=== PATIENT | male | born 1995 | race Caucasian/White ===

== ENCOUNTER 2017-03-04 12:39 | Emergency (ER) | payer SELFPAY ==
--- NOTE | 2017-03-04 15:22 | ED NURSING NOTES ---
Clinical Report - Nurses [facility] [address] [place] [address] 03/04/2017 12:40 Patient: JANIE DARDEN TRIAGE Triage time 1245. Acuity: LEVEL 3. Chief Complaint: INJURY TO FACE and MOUTH. 12:45. ( last ate 1130 cucumbers, last liquids 1100 java juice). LORI COMA SCORE: [place] Coma Scale: 15- eyes open spontaneously (4); best verbal response- oriented x 4 (5); best motor response- obeys commands (6). --12:59 Sully Alejo R.N. 12:50 03/04/17. BP: 136/67. HR: 106. RR: 18. O2 saturation: 100%. Temp: 97.2 F (axillary). Pain level now: 11/04. --12:59 Sully Alejo R.N. Weight: 61.2 kg stated. Height/Length: 69.5 inches Per Patient. BMI: 19.6. --12:54 Sully Alejo R.N. Medications None. --12:56 Sully Alejo R.N. Adderall Oral, last dose yesterday (thinks he has ADD and wanted to see if that would help ). --12:57 Sully Alejo R.N. Allergies No Known Drug Allergy. --12:56 Sully Alejo R.N. History Arrived by private vehicle. Historian: patient. Accompanied by friend. No primary care physician. This occurred just prior to arrival. Mechanism of injury: he sustained a dog bite. PAST MEDICAL HX: Negative. Tetanus status: up-to-date. SURGERY HX: No history of previous surgery. SOCIAL HX: Never smoker. Occasional alcohol use. History of drug use: marijuana. --12:59 Sully Alejo R.N. PROBLEMS: no known problems. ADDITIONAL SURGERIES: no known surgeries. Interventions ID band on patient. To treatment room. --12:59 Sully Alejo R.N. PHYSICAL ASSESSMENT 12:50. Ambulatory to room. GENERAL / NEURO / PSYCH: Alert. Oriented X 4. Appears anxious. HEENT: Facial swelling present. Right cheek: (PW noted on cheek). Voice within normal limits. Upper lip: laceration (through and through) (right side upper lip lac into facial boarder). Lower lip: laceration (through and through) (large flap of lower lip lloose). No dental injury noted. RESPIRATORY: Respirations not labored. BACK: No neck or back tenderness. SKIN: Skin is warm and dry. --13:01 Sully Alejo R.N. NURSING PROGRESS NOTES 12:45. Patient gowned. Reassurance given. Patient identifiers checked. Call light placed in reach. Side rails up. Bed placed in lowest position. Patient ready for evaluation- chart flagged. --13:01 Sully Alejo R.N. 13:10 03/04/2017 Lidocaine Injection Injectable 1 % given. (bottle at bedside for use by ERN). --13:20 Sully Alejo R.N. 13:10 03/04/2017 Bupivacaine Injection Injectable 0.5 % given. Allergies verified and confirmed 5 rights. (left at bedside for ERNP USE). --13:23 Sully Alejo R.N. 13:05. ( Photos taken of lip injury.). --13:24 Sully Alejo R.N. 13:15. ( Animal control office in [place] phoned, ([phone]) message left on voice mail to notify them of event). --13:26 Sully Alejo R.N. 13:17. ( suture set up and suction in place for procedure, assisted by transport technician). --13:27 Sully Alejo R.N. WOUND REPAIR: Wound repair performed by [facility]. Assisted by [facility] tech. The wound is located on the lip. The wound is irregular and flap-like. Preparation: suture tray set-up with 1% lidocaine and 0.50% Marcaine. Wound cleansed per [facility] and irrigated per [facility] with 500 mL sterile saline using a syringe. Procedure: wound repaired (extensive work on lower lip - 8 suture packets used). Post-procedure: he was stable, bleeding controlled and neuro-vascular status intact distal to wound. Total time of assist / procedure: 60 minutes. --14:30 Sully Alejo R.N. Airline Station Agent provided (wound repair by [facility]). Wound cleansed with sterile water (assistance during wound repair and triple antibiotic cream applied after sutures were done.). --14:51 Francie Sharp 14:30 03/04/2017 Ancef (CeFAZolin Sodium) IM 1 gm given. Given in the right ventral gluteus. --15:28 Sully Alejo R.N. 15:00 Pt reports no itching or rash after IM meds. Pt dc'd with friend ambulatory. --15:28 Sully Alejo R.N. DISPOSITION / DISCHARGE 15:05. Condition at departure: improved and stable. No learning barriers present. Discharge instructions provided and reviewed with tube depatcher and the patient. Reviewed medication(s) (zofran, vicodin, motrin, augmentin). Reviewed wound care instructions. Patient and tube depatcher verbalized understanding. Written instructions provided in Swiss. The patient was discharged home and accompanied by tube depatcher. He left the Emergency Department ambulatory and via private vehicle. Math And Physics Instructor driving. --15:27 Sully Alejo R.N. 15:05 03/04/17. BP: 128/64. HR: 84. RR: 16. O2 saturation: 100%. Temp: deferred. Pain level now: 0/10. --15:27 Sully Alejo R.N. Locked/Released at 03/04/2017 15:29 by Sully Alejo R.N.
--- NOTE | 2017-03-04 15:22 | ED NURSING NOTES ---
Clinical Report - Nurses [facility] [address] [place] [address] 03/04/2017 12:40 Patient: JANIE DARDEN TRIAGE Triage time 1245. Acuity: LEVEL 3. Chief Complaint: INJURY TO FACE and MOUTH. 12:45. ( last ate 1130 cucumbers, last liquids 1100 java juice). LORI COMA SCORE: [place] Coma Scale: 15- eyes open spontaneously (4); best verbal response- oriented x 4 (5); best motor response- obeys commands (6). --12:59 Sully Alejo R.N. 12:50 03/04/17. BP: 136/67. HR: 106. RR: 18. O2 saturation: 100%. Temp: 97.2 F (axillary). Pain level now: 11/04. --12:59 Sully Alejo R.N. Weight: 61.2 kg stated. Height/Length: 69.5 inches Per Patient. BMI: 19.6. --12:54 Sully Alejo R.N. Medications None. --12:56 Sully Alejo R.N. Adderall Oral, last dose yesterday (thinks he has ADD and wanted to see if that would help ). --12:57 Sully Alejo R.N. Allergies No Known Drug Allergy. --12:56 Sully Alejo R.N. History Arrived by private vehicle. Historian: patient. Accompanied by friend. No primary care physician. This occurred just prior to arrival. Mechanism of injury: he sustained a dog bite. PAST MEDICAL HX: Negative. Tetanus status: up-to-date. SURGERY HX: No history of previous surgery. SOCIAL HX: Never smoker. Occasional alcohol use. History of drug use: marijuana. --12:59 Sully Alejo R.N. PROBLEMS: no known problems. ADDITIONAL SURGERIES: no known surgeries. Interventions ID band on patient. To treatment room. --12:59 Sully Alejo R.N. PHYSICAL ASSESSMENT 12:50. Ambulatory to room. GENERAL / NEURO / PSYCH: Alert. Oriented X 4. Appears anxious. HEENT: Facial swelling present. Right cheek: (PW noted on cheek). Voice within normal limits. Upper lip: laceration (through and through) (right side upper lip lac into facial boarder). Lower lip: laceration (through and through) (large flap of lower lip lloose). No dental injury noted. RESPIRATORY: Respirations not labored. BACK: No neck or back tenderness. SKIN: Skin is warm and dry. --13:01 Sully Alejo R.N. NURSING PROGRESS NOTES 12:45. Patient gowned. Reassurance given. Patient identifiers checked. Call light placed in reach. Side rails up. Bed placed in lowest position. Patient ready for evaluation- chart flagged. --13:01 Sully Alejo R.N. 13:10 03/04/2017 Lidocaine Injection Injectable 1 % given. (bottle at bedside for use by ERN). --13:20 Sully Alejo R.N. 13:10 03/04/2017 Bupivacaine Injection Injectable 0.5 % given. Allergies verified and confirmed 5 rights. (left at bedside for ERNP USE). --13:23 Sully Alejo R.N. 13:05. ( Photos taken of lip injury.). --13:24 Sully Alejo R.N. 13:15. ( Animal control office in [place] phoned, ([phone]) message left on voice mail to notify them of event). --13:26 Sully Alejo R.N. 13:17. ( suture set up and suction in place for procedure, assisted by mechanical maintenance technician). --13:27 Sully Alejo R.N. WOUND REPAIR: Wound repair performed by [facility]. Assisted by [facility] tech. The wound is located on the lip. The wound is irregular and flap-like. Preparation: suture tray set-up with 1% lidocaine and 0.50% Marcaine. Wound cleansed per [facility] and irrigated per SHEAR SETTER with 500 mL sterile saline using a syringe. Procedure: wound repaired (extensive work on lower lip - 8 suture packets used). Post-procedure: he was stable, bleeding controlled and neuro-vascular status intact distal to wound. Total time of assist / procedure: 60 minutes. --14:30 Sully Alejo R.N. Telephone Order Dispatcher provided (wound repair by SHEAR [facility]TER). Wound cleansed with sterile water (assistance during wound repair and triple antibiotic cream applied after sutures were done.). --14:51 Francie Sharp 14:30 03/04/2017 Ancef (CeFAZolin Sodium) IM 1 gm given. Given in the right ventral gluteus. --15:28 Sully Alejo R.N. 15:00 Pt reports no itching or rash after IM meds. Pt dc'd with friend ambulatory. --15:28 Sully Alejo R.N. DISPOSITION / DISCHARGE 15:05. Condition at departure: improved and stable. No learning barriers present. Discharge instructions provided and reviewed with visualizer and the patient. Reviewed medication(s) (zofran, vicodin, motrin, augmentin). Reviewed wound care instructions. Patient and visualizer verbalized understanding. Written instructions provided in Sudanese. The patient was discharged home and accompanied by visualizer. He left the Emergency Department ambulatory and via private vehicle. Counter Tender driving. --15:27 Sully Alejo R.N. 15:05 03/04/17. BP: 128/64. HR: 84. RR: 16. O2 saturation: 100%. Temp: deferred. Pain level now: 0/10. --15:27 Sully Alejo R.N. Locked/Released at 03/04/2017 15:29 by Sully Alejo R.N.
--- NOTE | 2017-03-04 15:22 | ED ORDER SUMMARY ---
..... Patient: JANIE DARDEN OrderSheet [facility] VisitID: [id number] [place] [address] 22y, M Registration Date/Time: 03/04/2017 ORDER SHEET Weight: 61.2 kg (stated) Allergies: No Known Drug Allergy GENERAL ORDERS: - (please notify animal control) (12:53 03/04/2017 HBivens A.R.N.P.) (Ack 12:57 TBergley) (13:29 TBergley) Suction - Oral (12:54 03/04/2017 HBivens A.R.N.P.) (Ack 12:57 TBergley) (13:10 DDean R.N.) Suture Set-up: (12:54 03/04/2017 HBivens A.R.N.P.) (Ack 12:57 TBergley) (13:29 TBergley) MEDICATION ORDERS: Ancef IM 1 gm (NOW) (12:54 03/04/2017 HBivens A.R.N.P.) (Ack 13:39 DDean R.N.) (15:28 DDean R.N.) Lidocaine Injection 1% plain (NOW) (12:54 03/04/2017 HBivens A.R.N.P.) (Ack 13:10 DDean R.N.) (13:20 DDean R.N.) Bupivacaine Injection 0.5 % (soln) (NOW) (12:55 03/04/2017 HBivens A.R.N.P.) (Ack 13:10 DDean R.N.) (13:23 DDean R.N.) IV FLUIDS: ORDER SHEET NOTES: [Electronically signed by Sully Alejo R.N. (15:29 03/04/2017)] [Electronically signed by Sury Garcia A.R.N.P. (23:19 03/04/2017)] [Electronically locked/signed by Sully Alejo R.N. (15:29 03/04/2017)]
--- NOTE | 2017-03-04 15:22 | ED CLINICAL REPORT ---
Clinical Report - Physicians/Mid Levels [facility] [address] [place] [address] 03/04/2017 12:40 Patient: JANIE DARDEN Time Seen: 12:48; upon arrival, initial patient contact, initial documentation, patient care assumed. Arrived- By private vehicle. Historian- patient and friend. HISTORY OF PRESENT ILLNESS Location of injuries- face and mouth. Chief Complaint: DOG BITE. The injury occurred just prior to arrival. The animal reportedly appeared well, is up to date on immunizations and can be observed for ten days (friend's dog, large mix, lithuanian hearn and lab mix). Animal control has not been notified. This was an "unprovoked" attack. (was petting dog on his back and he 'nipped' at him). Patient approached animal. Occurred at a friend's house. No dizziness or difficulty breathing. He has not had trouble swallowing. 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 REVIEW OF SYSTEMS The patient has had swelling. No numbness, difficulty breathing, weakness or tingling. All systems otherwise negative, except as recorded above. PAST HISTORY Negative. Tetanus immunization status is up-to-date. SOCIAL HISTORY Never smoker. Occasional alcohol use. History of occasional drug use: marijuana. No recent travel. Is a local resident. FAMILY HISTORY No significant family medical history. ADDITIONAL NOTES The nursing notes have been reviewed with agreement regarding the chief complaint, HPI, ROS, PMH and patient medications and allergies. PHYSICAL EXAM Vital Signs: 03/04/2017 12:50 BP: 136/67. HR: 106. RR: 18. O2 saturation: 100%. Temp: 97.2 F. Pain level now: 11/04. Have been reviewed as abnormal and appear to be correct. Blood pressure normal. Tachycardic. Respiratory rate normal. Temperature normal. Oxygen saturation normal. Appearance: Alert. Oriented X3. No acute distress. Head: Head abnormal on inspection or tender. Mouth: moderate tenderness, mild swelling, subcutaneous laceration (through and through and involving the vermilion border of the lip) and medium sized ecchymosis (Lac #5 inside left lower lip near gum line, 1/2 cm linear, no closure needed, Lac #6 bottom frenulum, 2cm linear, no closure needed). SEE LACERATION PROCEDURE NOTE #1, #2, #3 and #4. No erythema, abrasion, puncture wound, foreign body or deformity. No localization of findings, malocclusion or dental abnormality. Right cheek: superficial 0.5 cm laceration of the maxilla of the right cheek (superficial no active bleeding, no closure needed). No erythema, tenderness, swelling, abrasion or ecchymosis. No puncture wound, foreign body, deformity, malocclusion or infraorbital anesthesia. Eyes: Eyes normal inspection. ENT: Ears normal on inspection. Nose normal on inspection. Mouth abnormal on inspection. Neck: Normal inspection. Neck non-tender. Painless ROM. Respiratory: Chest normal on inspection. No respiratory distress. Skin: Skin intact. Skin warm and dry. Normal skin color. Normal skin turgor. Extremities: Normal inspection. Pelvis stable. Extremities atraumatic. No lower extremity edema. Neuro: Oriented X 3. No motor deficit. No sensory deficit. PROGRESS AND PROCEDURES Dental Nerve Block: Inferior Alveolar Block. ( x1 dental block done to top lip, and x1 dental block done to bottom lip, both done in center of inside alveolar area). Landmarks were identified. Total volume of 5 mL 1% Lidocaine and 0.5% Marcaine infiltrated using a 27-gauge needle. Patient cooperative during procedure. No complications encountered. Excellent anesthesia achieved. Procedure repeated on opposite side. Laceration Repair: Location: mouth (bottom lip). Length: 1 cm. Complexity: complex (involving the vermilion border). Wound depth/shape- flap-like and involving fascia. Wound is clean. No contamination, foreign body or contused tissue present. Exam note: v flap. Distal neuro/vascular/tendon status normal. Prepped with Betadine. Wound explored, cleansed, irrigated and examined to the base in bloodless field extensively with normal saline. Closure of lip: interrupted 6-0 nylon (5 sutures). Post-procedure: he is stable and there are no complications. Bleeding is controlled and neuro-vascular status is intact distal to the wound. Tetanus immunization up-to-date. ( wounds were irrigated with 1L of NS prior to closure, all washed with betadine and re-irrigated, dental blocks were done for anesthesia). Laceration Repair #2: Location: mouth (bottom lip). Length: 2 cm. Complexity: complex (involving the vermilion border). Wound depth/shape- subcutaneous and irregular and involving fascia. Wound is clean. Exam note: thru-n-thru. Distal neuro/vascular/tendon status normal. Prepped with Betadine. Wound explored, irrigated and examined to the base in bloodless field extensively with normal saline. Wound not cleansed. No foreign material removed. Closure of lip: 6-0 nylon (11 sutures). Laceration Repair #3: Location: mouth (top lip). Length: 1 cm. Complexity: thru-n-thru. Wound depth/shape- irregular and involving fascia. Wound is clean. No contamination, foreign body or contused tissue present. No tissue loss. Distal neuro/vascular/tendon status normal. Prepped with Betadine. Wound explored, cleansed, irrigated and examined to the base in bloodless field extensively with normal saline. Closure of lip: interrupted 6-0 (6 sutures). Laceration Repair #4: Location: mouth (top lip R side). Length: 0.5cm. Complexity: complex (involving the vermilion border) thru-n-thru. Wound depth/shape- irregular and involving fascia. Wound is clean. No contamination, foreign body or contused tissue present. No tissue loss. Distal neuro/vascular/tendon status normal. Prepped with Betadine. Wound explored, cleansed, irrigated and examined to the base in bloodless field extensively. Wound not debrided. No foreign material removed. Closure of lip: interrupted 6-0 (9 sutures). Estimated blood loss: 30 mL total for all lacs. Patient and friend counseled in person regarding the patient's stable condition and diagnosis. Differential Diagnosis: Other possible considerations: dog bite, dental trauma, loose/broken teeth, lacs, abrasions, pw, contusions. Above considerations are based on history, physical exam and reassessment. Differential diagnosis was discussed with patient. Disposition: Discharged home in good and improved condition (14:36). Condition: good and stable. CLINICAL IMPRESSION Multiple deep dog bites to the upper and lower lip and right cheek area. INSTRUCTIONS Apply ice for 20 minutes four times a day for two days until better. Don't apply ice directly to skin. Protect wound and keep wound area clean. Soak in warm soapy water twice daily. Apply neosporin twice daily. Sutures should be removed in seven days. Do not work today, tomorrow. Warnings: GENERAL WARNINGS: Return or contact your physician immediately if your condition worsens or changes unexpectedly, if not improving as expected, or if other problems arise. Specifically return if problem worsens. Prescription Medications: Zofran 4 mg: Take 1 orally every six hours as needed for nausea/vomiting. Dispense ten (10). No refills. Substitution is permissible. Augmentin 875 mg: take 1 tablet orally every 12 hours for 10 days. No refill. [place] 5 mg / 325 mg tablets: take 1 to 2 orally every 6 hours as needed for pain. Dispense fifteen (15). No refills. Substitution is permissible. Motrin 800 mg tablets: take 1 tablet orally every 8 hours as needed for pain. Dispense thirty (30). No refills. Substitution is permissible. Follow-up: Follow up with your doctor Monday even if well and for wound check. Call for an appointment. Summary of care provided to patient. Understanding of the discharge instructions verbalized by patient. (Electronically signed by Sury Garcia A.R.N.P. 03/04/2017 23:19)
--- NOTE | 2017-03-04 15:22 | ED ORDER SUMMARY ---
..... Patient: JANIE DARDEN OrderSheet [facility] VisitID: [id number] [place] [address] 22y, M Registration Date/Time: 03/04/2017 ORDER SHEET Weight: 61.2 kg (stated) Allergies: No Known Drug Allergy GENERAL ORDERS: - (please notify animal control) (12:53 03/04/2017 HBivens A.R.N.P.) (Ack 12:57 TBergley) (13:29 TBergley) Suction - Oral (12:54 03/04/2017 HBivens A.R.N.P.) (Ack 12:57 TBergley) (13:10 DDean R.N.) Suture Set-up: (12:54 03/04/2017 HBivens A.R.N.P.) (Ack 12:57 TBergley) (13:29 TBergley) MEDICATION ORDERS: Ancef IM 1 gm (NOW) (12:54 03/04/2017 HBivens A.R.N.P.) (Ack 13:39 DDean R.N.) (15:28 DDean R.N.) Lidocaine Injection 1% plain (NOW) (12:54 03/04/2017 HBivens A.R.N.P.) (Ack 13:10 DDean R.N.) (13:20 DDean R.N.) Bupivacaine Injection 0.5 % (soln) (NOW) (12:55 03/04/2017 HBivens A.R.N.P.) (Ack 13:10 DDean R.N.) (13:23 DDean R.N.) IV FLUIDS: ORDER SHEET NOTES: [Electronically signed by Sully Alejo R.N. (15:29 03/04/2017)] [Electronically signed by Sury Garcia A.R.N.P. (23:19 03/04/2017)] [Electronically locked/signed by Sully Alejo R.N. (15:29 03/04/2017)]
--- NOTE | 2017-03-04 23:19 | ED DISCHARGE INSTRUCTIONS ---
Patient: JANIE DARDEN General Instructions [facility] VisitID: [id number] [place] [address] 22y, M Registration Date/Time: 03/04/2017 Multiple deep dog bites to the upper and lower lip and right cheek area. INSTRUCTIONS Apply ice for 20 minutes four times a day for two days until better. Don't apply ice directly to skin. Protect wound and keep wound area clean. Soak in warm soapy water twice daily. Apply neosporin twice daily. Sutures should be removed in seven days. Do not work today, tomorrow. Warnings: GENERAL WARNINGS: Return or contact your physician immediately if your condition worsens or changes unexpectedly, if not improving as expected, or if other problems arise. Specifically return if problem worsens. Prescription Medications: Zofran 4 mg: Take 1 orally every six hours as needed for nausea/vomiting. Dispense ten (10). No refills. Substitution is permissible. Augmentin 875 mg: take 1 tablet orally every 12 hours for 10 days. No refill. Seaside 5 mg / 325 mg tablets: take 1 to 2 orally every 6 hours as needed for pain. Dispense fifteen (15). No refills. Substitution is permissible. Motrin 800 mg tablets: take 1 tablet orally every 8 hours as needed for pain. Dispense thirty (30). No refills. Substitution is permissible. Follow-up: Follow up with your doctor Monday even if well and for wound check. Call for an appointment. Summary of care provided to patient. Understanding of the discharge instructions verbalized by patient. ADDITIONAL INFORMATION Dog Bite If a dog has bitten you and the wound is deep enough to break the skin, an infection may occur. Therefore, you should watch for the warning signs listed below. The doctor may not close the wound completely. This is to allow fluid to drain in the event of an infection. Home Care Watch the wound for signs of infection listed below. In certain types of bites, antibiotics may be prescribed. Begin taking these as soon as possible, as directed until they are all gone. Rabies Prevention If you live in an area where rabies occurs in wild animals, the rabies virus can be passed to cats and dogs. An infected animal can pass the rabies virus to you during a bite. If ahealthy-looking pet dog has bitten you, it should be kept in a secure area for the next 10 days to watch for signs of illness. If the pet wrapper and preserver wont cooperate with you, contact the critical access hospital animal control department (or local law enforcement). If the animal becomes ill or dies days, contact your animal control department at once. The animal must be tested for rabies. If the animal stays healthy for the next 10 days, then there is no danger of rabies in the dog or you. Pets fully vaccinated against rabies (2 shots) are at very low risk for the infection. However, because human rabies is almost always fatal, any biting dog should be kept in confinement for 10 days as an extra precaution. If a stray dog bit you, contact the animal control department. They can provide information on capture, quarantine, and animal rabies testing. If you are unable to locate the animal that bit you in the next 2days, and if rabies exists in your region, you must be evaluated for the rabies vaccine series. Contact your doctor or return here promptly. All animal bites should be reported to the critical [facility] hospital animal control department. If you were not given a form to fill out, you can report it yourself by calling. Follow Up with your doctor as advised. Most skin wounds heal within 10 days. However, an infection may occur even with proper treatment. Check your woundevery 6 hoursfor 2 days, then at least once a day for the next two days for the signs of infection listed below. Get Prompt Medical Attention if any of the following occur: Signs of infection: Spreading redness Increased pain or swelling Fever of 100.4F (38C) or higher, or as directed by your healthcare provider Colored fluid or pus draining from the wound Headache, confusion, strange behavior, or a seizure (signs of a rabies infection) Laceration, Extremity (Sutures, Paras, Or Tape) A laceration is a cut through the skin. This will usually require stitches (sutures) or paras if it is deep. Minor cuts may be treated with surgical tape closures. Home care The following guidelines will help you care for your laceration at home: Keep the wound clean and dry. If a bandage was applied and it becomes wet or dirty, replace it. Otherwise, leave it in place for the first 24 hours, then change it once a day or as directed. If stitches or paras were used, clean the wound daily: After removing the bandage, wash the area with soap and water. Use a wet cotton swab to loosen and remove any blood or crust that forms. After cleaning, keep the wound clean and dry. Talk with your doctor before applying any antibiotic ointment to the wound. Reapply the bandage. You may remove the bandage to shower as usual after the first 24 hours, but do not soak the area in water (no swimming) until the stitches or paras are removed. If surgical tape closures were used, keep the area clean and dry. If it becomes wet, blot it dry with a towel. The doctor may prescribe an antibiotic cream or ointment to prevent infection. Do not stop taking this medication until you have finished the prescribed course or the doctor tells you to stop. The doctor may also prescribe medications for pain. Follow the doctors instructions for taking these medications. If you have chronic liver or kidney disease or ever had a stomach ulcer or GI bleeding, talk with your doctor before using these medicines. Follow-up care Follow up with your health care provider. Most skin wounds heal within ten days. However, an infection may sometimes occur despite proper treatment. Therefore, check the wound daily for the signs of infection listed below. Stitches and paras should be removed within 714 days. If surgical tape closures were used, you may remove them after 10 days, if they have not fallen off by then. Notify your doctor if you notice persistent numbness or weakness in the injured extremity. (Note:A radiologist will review any X-rays that were taken. We will notify you of any new findings that may affect your care.) When to seek medical care Get prompt medical attention if any of these occur: Increasing pain in the wound Redness, swelling, or pus coming from the wound Fever of 100.4F (38C) or higher, or as directed by your health care provider If stitches or paras come apart or fall out before your next appointment If the surgical tape closures fall off within seven days, or the wound edges re-open Bleeding not controlled by direct pressure Laceration, Lip and Mouth Alaceration is a cut through the skin. When the cut is on the outside of the lip, it may be closed with stitches, surgical tape, or sometimes skin glue. Cuts inside the mouth may be sutured or left open, depending on the size. When stitches are used in the mouth, they are usually the kind that dissolve. Home care The following guidelines will help you care for your laceration at home: Eat soft foods to reduce pain when chewing. If the cut isinsideyour mouth, clean the wound by rinsing your mouth after each meal and at bedtime with a mixture of equal parts water and hydrogen peroxide (do not swallow!). Or, you can use a cotton swab to apply hydrogen peroxide directly onto the cut. Mouth wounds can be painful when eating. You may use a local, [id number] numbing solution for pain relief. If this is not available, you may use any numbing solution for teething babies. You may apply this directly to the sores with a cotton-tip swab or with your finger. If the cut is on theoutsideof the lip and sutures were used, you may shower as usual after the first 24 hours, but do not put your head under water until the sutures are removed. After removing the bandage, wash the area with soap and water. Use a wet cotton swab to loosen and remove any blood or crust that forms. After cleaning, keep the wound clean and dry. Talk with your doctor before applying any antibiotic ointment to the wound. You may apply an adhesive bandage or leave the wound open. If surgical tape was used, keep the area clean and dry. If it becomes wet, blot it dry with a towel. Talk with your doctor before applying any antibiotic ointment to the wound. The surgical tape closures will usually fall off after about 5 days. If skin glue was used, do not scratch, rub, or pick at the adhesive film. Do not place tape directly over the film.Do not apply liquid, ointment, or creams to the wound while the film is inplace.Do not clean the wound with peroxide and do not apply ointment. Avoid activities that cause heavy sweating until the film has fallen off. Protect the wound from prolonged exposure to sunlight or tanning lamps. You may shower as usual but do not soak the wound in water (no swimming). If you were given an antibiotic to prevent infection, do not stop taking this medication until you have finished the prescribed course or the doctor tells you to stop. The doctor may prescribe medications for pain. Follow the doctor's instructions for taking these medications.If you have chronic liver or kidney disease or ever had a stomach ulcer or GI bleeding, talk with your doctor before using these medicines. Follow-up care Follow up with your health care provider. Cuts in and around the mouth heal in about five days. However, even with proper treatment, a wound infection sometimes occurs. Therefore, check the wound daily for the warning signs listed below. Stitches should not be left in the face for more thanfivedays; otherwise, permanent stitch schwartz may form. Unless told otherwise, you may remove surgical tape closures yourself afterfive days, if they have not already fallen off. Ifskin glue was used, the film will fall off by itself in 510 days. When to seek medical care Get prompt medical attention if any of these occur: Increasing pain in the wound Fever of 100.4F (38C) or higher, or as directed by your health care provider Redness, swelling, or pus coming from the wound If sutures come apart or fall out or if surgical tape falls off before three days If the wound edges reopen Bleeding not controlled by direct pressure Ondansetron Oral disintegrating tablet What is this medicine? ONDANSETRON (on JENNI se paul) is used to treat nausea and vomiting caused by chemotherapy. It is also used to prevent or treat nausea and vomiting after surgery. How should I use this medicine? These tablets are made to dissolve in the mouth. Do not try to push the tablet through the foil backing. With dry hands, peel away the foil backing and gently remove the tablet. Place the tablet in the mouth and allow it to dissolve, then swallow. While you may take these tablets with water, it is not necessary to do so. Talk to your pharmacy technician infusion regarding the use of this medicine in children. Special care may be needed. What side effects may I notice from receiving this medicine? Side effects that you should report to your doctor or health health care technician as soon as possible: allergic reactions like skin rash, itching or hives, swelling of the face, lips, or tongue breathing problems dizziness fast or irregular heartbeat feeling faint or lightheaded, falls fever and chills swelling of the hands and feet tightness in the chest Side effects that usually do not require medical attention (report to your doctor or health health care technician if they continue or are bothersome): constipation or diarrhea headache What may interact with this medicine? Do not take this medicine with any of the following medications: -apomorphine -cisapride -dofetilide -dronedarone -pimozide -thioridazine -ziprasidone This medicine may also interact with the following medications: -carbamazepine -phenytoin -rifampicin -tramadol -other medicines that prolong the QT interval (cause an abnormal heart rhythm) What if I miss a dose? If you miss a dose, take it as soon as you can. If it is almost time for your next dose, take only that dose. Do not take double or extra doses. Where should I keep my medicine? Keep out of the reach of children. Store between 2 and 30 degrees C (36 and 86 degrees F). Throw away any unused medicine after the expiration date. What should I tell my health care provider before I take this medicine? They need to know if you have any of these conditions: heart disease history of irregular heartbeat liver disease low levels of magnesium or potassium in the blood an unusual or allergic reaction to ondansetron, granisetron, other medicines, foods, dyes, or preservatives or trying to get breast-feeding What should I watch for while using this medicine? Check with your doctor or health health care technician as soon as you can if you have any sign of an allergic reaction. Amoxicillin Trihydrate, Clavulanate Potassium Oral tablet What is this medicine? AMOXICILLIN; CLAVULANIC ACID (a mox i MARCIA in; SIGRID hanna sherwin ic id) is a penicillin antibiotic. It is used to treat certain kinds of bacterial infections. It will not work for colds, flu, or other viral infections. How should I use this medicine? Take this medicine by mouth with a full glass of water. Follow the directions on the prescription label. Take at the start of a meal. Do not crush or chew. If the tablet has a score line, you may cut it in half at the score line for easier swallowing. Take your medicine at regular intervals. Do not take your medicine more often than directed. Take all of your medicine as directed even if you think you are better. Do not skip doses or stop your medicine early. Talk to your pharmacy technician infusion regarding the use of this medicine in children. Special care may be needed. What side effects may I notice from receiving this medicine? Side effects that you should report to your doctor or health health care technician as soon as possible: allergic reactions like skin rash, itching or hives, swelling of the face, lips, or tongue breathing problems dark urine fever or chills, sore throat redness, blistering, peeling or loosening of the skin, including inside the mouth seizures trouble passing urine or change in the amount of urine unusual bleeding, bruising unusually weak or tired white patches or sores in the mouth or throat Side effects that usually do not require medical attention (report to your doctor or health health care technician if they continue or are bothersome): diarrhea dizziness headache nausea, vomiting stomach upset vaginal or anal irritation What may interact with this medicine? allopurinol anticoagulants control pills methotrexate probenecid What if I miss a dose? If you miss a dose, take it as soon as you can. If it is almost time for your next dose, take only that dose. Do not take double or extra doses. Where should I keep my medicine? Keep out of the reach of children. Store at room temperature below 25 degrees C (77 degrees F). Keep container tightly closed. Throw away any unused medicine after the expiration date. What should I tell my health care provider before I take this medicine? They need to know if you have any of these conditions: bowel disease, like colitis kidney disease liver disease mononucleosis an unusual or allergic reaction to amoxicillin, penicillin, cephalosporin, other antibiotics, clavulanic acid, other medicines, foods, dyes, or preservatives or trying to get breast-feeding What should I watch for while using this medicine? Tell your doctor or health health care technician if your symptoms do not improve. Do not treat diarrhea with over the counter products. Contact your doctor if you have diarrhea that lasts more than 2 days or if it is severe and watery. If you have diabetes, you may get a false-positive result for sugar in your urine. Check with your doctor or health health care technician. control pills may not work properly while you are taking this medicine. Talk to your doctor about using an extra method of control. Hydrocodone Bitartrate, Acetaminophen Oral tablet What is this medicine? ACETAMINOPHEN; HYDROCODONE (a set a SUSANNA claudia fen; nancy droe KOE done) is a pain reliever. It is used to treat mild to moderate pain. How should I use this medicine? Take this medicine by mouth. Swallow it with a full glass of water. Follow the directions on the prescription label. If the medicine upsets your stomach, take the medicine with food or milk. Do not take more than you are told to take. Talk to your pharmacy technician infusion regarding the use of this medicine in children. This medicine is not approved for use in children. What side effects may I notice from receiving this medicine? Side effects that you should report to your doctor or health health care technician as soon as possible: allergic reactions like skin rash, itching or hives, swelling of the face, lips, or tongue breathing problems confusion feeling faint or lightheaded, falls stomach pain yellowing of the eyes or skin Side effects that usually do not require medical attention (report to your doctor or health health care technician if they continue or are bothersome): nausea, vomiting stomach upset What may interact with this medicine? alcohol antihistamines isoniazid medicines for depression, anxiety, or psychotic disturbances medicines for sleep muscle relaxants naltrexone narcotic medicines (opiates) for pain phenobarbital ritonavir tramadol What if I miss a dose? If you miss a dose, take it as soon as you can. If it is almost time for your next dose, take only that dose. Do not take double or extra doses. Where should I keep my medicine? Keep out of the reach of children. This medicine can be abused. Keep your medicine in a safe place to protect it from theft. Do not share this medicine with anyone. Selling or giving away this medicine is dangerous and against the law. Store at room temperature between 15 and 30 degrees C (59 and 86 degrees F). Protect from light. Keep container tightly closed. Throw away any unused medicine after the expiration date. Discard unused medicine and used packaging carefully. Pets and children can be harmed if they find used or lost packages. What should I tell my health care provider before I take this medicine? They need to know if you have any of these conditions: brain tumor Crohn's disease, inflammatory bowel disease, or ulcerative colitis drink more than 3 alcohol-containing drinks per day drug abuse or addiction head injury heart or circulation problems kidney disease or problems going to the bathroom liver disease lung disease, asthma, or breathing problems an unusual or allergic reaction to acetaminophen, hydrocodone, other opioid analgesics, other medicines, foods, dyes, or preservatives or trying to get breast-feeding What should I watch for while using this medicine? Tell your doctor or health health care technician if your pain does not go away, if it gets worse, or if you have new or a different type of pain. You may develop tolerance to the medicine. Tolerance means that you will need a higher dose of the medicine for pain relief. Tolerance is normal and is expected if you take the medicine for a long time. Do not suddenly stop taking your medicine because you may develop a severe reaction. Your body becomes used to the medicine. This does NOT mean you are addicted. Addiction is a behavior related to getting and using a drug for a non-medical reason. If you have pain, you have a medical reason to take pain medicine. Your doctor will tell you how much medicine to take. If your doctor wants you to stop the medicine, the dose will be slowly lowered over time to avoid any side effects. You may get drowsy or dizzy when you first start taking the medicine or change doses. Do not drive, use machinery, or do anything that may be dangerous until you know how the medicine affects you. Stand or sit up slowly. There are different types of narcotic medicines (opiates) for pain. If you take more than one type at the same time, you may have more side effects. Give your health care provider a list of all medicines you use. Your doctor will tell you how much medicine to take. Do not take more medicine than directed. Call emergency for help if you have problems breathing. The medicine will cause constipation. Try to have a bowel movement at least every 2 to 3 days. If you do not have a bowel movement for 3 days, call your doctor or health health care technician. Too much acetaminophen can be very dangerous. Do not take Tylenol (acetaminophen) or medicines that contain acetaminophen with this medicine. Many non-prescription medicines contain acetaminophen. Always read the labels carefully. Ibuprofen Oral tablet What is this medicine? IBUPROFEN (eye BYOO proe fen) is a non-steroidal anti-inflammatory drug (NSAID). It is used for dental pain, fever, headaches or migraines, osteoarthritis, rheumatoid arthritis, or painful monthly periods. It can also relieve minor aches and pains caused by a cold, flu, or sore throat. How should I use this medicine? Take this medicine by mouth with a glass of water. Follow the directions on the prescription label. Take this medicine with food if your stomach gets upset. Try to not lie down for at least 10 minutes after you take the medicine. Take your medicine at regular intervals. Do not take your medicine more often than directed. A special MedGuide will be given to you by the pharmacist with each prescription and refill. Be sure to read this information carefully each time. Talk to your pharmacy technician infusion regarding the use of this medicine in children. Special care may be needed. What side effects may I notice from receiving this medicine? Side effects that you should report to your doctor or health health care technician as soon as possible: allergic reactions like skin rash, itching or hives, swelling of the face, lips, or tongue black or bloody stools, blood in the urine or in vomit breathing problems changes in vision chest pain general ill feeling or flu-like symptoms nausea or vomiting redness, blistering, peeling or loosening of the skin, including inside the mouth slurred speech or weakness on one side of the body stomach pain unexplained weight gain or swelling unusually weak or tired yellowing of eyes or skin Side effects that usually do not require medical attention (report to your doctor or health health care technician if they continue or are bothersome): constipation or diarrhea dizziness gas or heartburn stomach upset What may interact with this medicine? Do not take this medicine with any of the following medications: cidofovir ketorolac methotrexate pemetrexed This medicine may also interact with the following medications: alcohol aspirin diuretics lithium other drugs for inflammation like prednisone warfarin What if I miss a dose? If you miss a dose, take it as soon as you can. If it is almost time for your next dose, take only that dose. Do not take double or extra doses. Where should I keep my medicine? Keep out of the reach of children. Store at room temperature between 15 and 30 degrees C (59 and 86 degrees F). Keep container tightly closed. Throw away any unused medicine after the expiration date. What should I tell my health care provider before I take this medicine? They need to know if you have any of these conditions: asthma cigarette smoker drink more than 3 alcohol containing drinks a day heart disease or circulation problems such as heart failure or leg edema (fluid retention) high blood pressure kidney disease liver disease stomach bleeding or ulcers an unusual or allergic reaction to ibuprofen, aspirin, other NSAIDS, other medicines, foods, dyes, or preservatives or trying to get breast-feeding What should I watch for while using this medicine? Tell your doctor or healthcare professional if your symptoms do not start to get better or if they get worse. This medicine does not prevent heart attack or stroke. In fact, this medicine may increase the chance of a heart attack or stroke. The chance may increase with longer use of this medicine and in people who have heart disease. If you take aspirin to prevent heart attack or stroke, talk with your doctor or health health care technician. Do not take other medicines that contain aspirin, ibuprofen, or naproxen with this medicine. Side effects such as stomach upset, nausea, or ulcers may be more likely to occur. Many medicines available without a prescription should not be taken with this medicine. This medicine can cause ulcers and bleeding in the stomach and intestines at any time during treatment. Ulcers and bleeding can happen without warning symptoms and can cause . To reduce your risk, do not smoke cigarettes or drink alcohol while you are taking this medicine. You may get drowsy or dizzy. Do not drive, use machinery, or do anything that needs mental alertness until you know how this medicine affects you. Do not stand or sit up quickly, especially if you are an older patient. This reduces the risk of dizzy or fainting spells. This medicine can cause you to bleed more easily. Try to avoid damage to your teeth and gums when you brush or floss your teeth. You have been given the following additional information: Dog Bite Laceration, Extrem (Suture, Staple, Or Tape) Laceration, Lip/Mouth Ondansetron Oral disintegrating tablet Amoxicillin Trihydrate, Clavulanate Potassium Oral tablet Hydrocodone Bitartrate, Acetaminophen Oral tablet Ibuprofen Oral tablet Do not work today, tomorrow. (Electronically signed by Sury Garcia A.R.N.P. 03/04/2017 23:19)
--- NOTE | 2017-03-04 23:20 | ED MED RECONCILIATION SUMMARY ---
Patient: JANIE DARDEN Medication Reconciliation Report [facility] VisitID: [id number] [place] [address] 22y, M Registration Date/Time: 03/04/2017 Weight: 61.2 kg Height/Length: (not available) BMI: 19.6 ALLERGIES: No Known Drug Allergy The patient's Home Medications are listed below: THE FOLLOWING MEDICATIONS NEED TO BE RECONCILED: Adderall Oral, last dose: yesterday , thinks he has ADD and wanted to see if that would help The source(s) of the original Home Medication information: Not obtained. The following Medications were given to the patient in the Emergency Department: Lidocaine [Injection] Injection 1 %, administered: 03/04/2017 1:10:00 PM Bupivacaine [Injection] Injection 0.5 %, administered: 03/04/2017 1:10:00 PM Ancef [IM] IM 1 gm, administered: 03/04/2017 2:30:00 PM The following Medications were prescribed to the patient: Zofran 4 mg: Take 1 orally every six hours as needed for nausea/vomiting. Dispense ten (10). No refills. Substitution is permissible. -- Sury Garcia, A.R.N.P. Augmentin 875 mg: take 1 tablet orally every 12 hours for 10 days. No refill. -- Sury Garcia A.R.N.P. [place] 5 mg / 325 mg tablets: take 1 to 2 orally every 6 hours as needed for pain. Dispense fifteen (15). No refills. Substitution is permissible. -- Sury Garcia, A.R.N.P. Motrin 800 mg tablets: take 1 tablet orally every 8 hours as needed for pain. Dispense thirty (30). No refills. Substitution is permissible. -- Sury Garcia A.R.N.P.
--- NOTE | 2017-03-04 23:20 | ED MAR SUMMARY ---
..... Medication Administration Record [facility] [address] [place] [address] Patient: JANIE DARDEN Visit ID: [id number] 22y, M Weight: 61.2 kg Height/Length: 69.5 in BMI: 19.6 ALLERGIES: No Known Drug Allergy Given 13:03/04/2017 Sully Alejo R.NTony Medication Administered: LIDOCAINE [INJECTION], Dose: 1 % Injectable Injection. Medication Ordered: Lidocaine Injection 1% plain (NOW). Given 13:03/04/2017 Sully Alejo R.N. Medication Administered: BUPIVACAINE [INJECTION], Dose: 0.5 % Injectable Injection. Medication Ordered: Bupivacaine Injection 0.5 % (soln) (NOW). Given 14:30 03/04/2017 Sully Alejo RTonyN. Medication Administered: ANCEF [IM] (CEFAZOLIN SODIUM), Dose: 1 gm IM. Medication Ordered: Ancef IM 1 gm (NOW).
--- NOTE | 2017-03-04 23:20 | ED MAR SUMMARY ---
..... Medication Administration Record [facility] [address] [place] [address] Patient: JANIE DARDEN Visit ID: [id number] 22y, M Weight: 61.2 kg Height/Length: 69.5 in BMI: 19.6 ALLERGIES: No Known Drug Allergy Given 13:03/04/2017 Sully Alejo R.NTony Medication Administered: LIDOCAINE [INJECTION], Dose: 1 % Injectable Injection. Medication Ordered: Lidocaine Injection 1% plain (NOW). Given 13:03/04/2017 Sully Alejo R.N. Medication Administered: BUPIVACAINE [INJECTION], Dose: 0.5 % Injectable Injection. Medication Ordered: Bupivacaine Injection 0.5 % (soln) (NOW). Given 14:30 03/04/2017 Sully Alejo RTonyN. Medication Administered: ANCEF [IM] (CEFAZOLIN SODIUM), Dose: 1 gm IM. Medication Ordered: Ancef IM 1 gm (NOW).
--- NOTE | 2017-03-04 23:20 | ED MED RECONCILIATION SUMMARY ---
Patient: JANIE DARDEN Medication Reconciliation Report [facility] VisitID: [id number] [place] [address] 22y, M Registration Date/Time: 03/04/2017 Weight: 61.2 kg Height/Length: (not available) BMI: 19.6 ALLERGIES: No Known Drug Allergy The patient's Home Medications are listed below: THE FOLLOWING MEDICATIONS NEED TO BE RECONCILED: Adderall Oral, last dose: yesterday , thinks he has ADD and wanted to see if that would help The source(s) of the original Home Medication information: Not obtained. The following Medications were given to the patient in the Emergency Department: Lidocaine [Injection] Injection 1 %, administered: 03/04/2017 1:10:00 PM Bupivacaine [Injection] Injection 0.5 %, administered: 03/04/2017 1:10:00 PM Ancef [IM] IM 1 gm, administered: 03/04/2017 2:30:00 PM The following Medications were prescribed to the patient: Zofran 4 mg: Take 1 orally every six hours as needed for nausea/vomiting. Dispense ten (10). No refills. Substitution is permissible. -- Sury Garcia, A.R.N.P. Augmentin 875 mg: take 1 tablet orally every 12 hours for 10 days. No refill. -- Sury Garcia A.R.N.P. [place] 5 mg / 325 mg tablets: take 1 to 2 orally every 6 hours as needed for pain. Dispense fifteen (15). No refills. Substitution is permissible. -- Sury Garcia, A.R.N.P. Motrin 800 mg tablets: take 1 tablet orally every 8 hours as needed for pain. Dispense thirty (30). No refills. Substitution is permissible. -- Sury Garcia A.R.N.P.
== END 2017-03-04 15:05 | disposition home or self-care (01) ==
LOC: ED SRH 12:39
DX: S01.451A Open bite of right cheek and temporomandibular area, initial encounter (principal); S01.551A Open bite of lip, initial encounter; W54.0XXA Bitten by dog, initial encounter; Y93.89 Activity, other specified; Y92.009 Unspecified place in unspecified non-institutional (private) residence as the place of occurrence of the external cause; Y99.9 Unspecified external cause status